=== PATIENT | female | born 1950 | race Caucasian/White ===

== ENCOUNTER 2017-08-14 19:31 | Inpatient (IN) | payer MEDICARE ==
[~2017-08-14] VITALS: Ht 162.6 cm; Wt 68.0 kg
[2017-08-14] MEDS ORDERED: Sodium Chloride 500ML 500 ML IV ONE (19:54)
[2017-08-14] MEDS ORDERED: Isovue-300 100ml vial INJ PRN (20:00)
[2017-08-14] MEDS ORDERED: Morphine Sulfate 4mg/ml Inj IVP ONE ×2 (20:00→22:00)
[2017-08-14 20:04] LABS: APPEARANCE,URINE VERY CLOUDY; BILIRUBIN, URINE NEGATIVE (NEGATIVE); COLOR,URINE PALE YELLOW; GLUCOSE, URINE (UA) NEGATIVE (NEGATIVE); KETONES,URINE NEGATIVE (NEGATIVE); LEUKOCYTE ESTERASE ,URINE 3+ (NEGATIVE); NITRITE,URINE POSITIVE (NEGATIVE); PH,URINE 6 (4.5-8.0); PROTEIN,URINE 3+ (NEGATIVE); UROBILINOGEN,URINE NORMAL MG/DL (0.0-1.0)
[2017-08-14] MEDS ORDERED: cefTRIAXone 1 GM in NS 55 ML IVPB ONE (20:15)
[2017-08-14 20:32] VITALS: BP 101/82
[2017-08-14 20:32] LABS: BASOPHILS % (AUTO) 0.8 % (0.0-2.0); EOSINOPHILS % (AUTO) 0.5 % (0.0-3.0); HEMATOCRIT 41.1 % (37.0-47.0); HEMOGLOBIN 13.7 G/DL (12.0-16.0); LYMPHOCYTES % (AUTO) 32.9 % (20.0-45.0); MEAN CORPUSCULAR VOLUME 86 FL (80-99); MONOCYTES % (AUTO) 5.7 % (1.0-10.0); NEUTROPHILS % (AUTO) 60.1 % (45.0-75.0); PLATELET COUNT 202 K/UL (150-450); RED BLOOD COUNT 4.75 M/UL (4.20-5.40); RED CELL DISTRIBUTION WIDTH 13.7 % (11.6-14.8); WHITE BLOOD COUNT 10.3 K/UL (4.8-10.8)
[2017-08-14 20:43] LABS: ANION GAP 10 mmol/L (5-15); BLOOD UREA NITROGEN 12 mg/dL (7-18); CALCIUM 9.3 MG/DL (8.5-10.1); CARBON DIOXIDE 26 MMOL/L (21-32); CHLORIDE 105 MMOL/L (98-107); CREATININE 1.1 MG/DL (0.55-1.30); POTASSIUM 3.5 MMOL/L (3.5-5.1); SODIUM 141 MMOL/L (136-145)
[2017-08-14 20:47] LABS: ALANINE AMINOTRANSFERASE 28 U/L (12-78); ALBUMIN 3.8 G/DL (3.4-5.0); ALBUMIN/GLOBULIN RATIO 1.1 (1.0-2.7); ALKALINE PHOSPHATASE 88 U/L (46-116); ASPARTATE AMINO TRANSFERASE 18 U/L (15-37); BILIRUBIN,TOTAL 0.5 MG/DL (0.2-1.0)
[2017-08-14 21:30] VITALS: BP 150/97
[2017-08-14] MEDS ORDERED: Ketorolac 30mg Inj IV ONE (22:00)
--- NOTE | 2017-08-14 22:23 | Emergency Room Report ---
History of Present Illness General Chief Complaint: Abdominal Pain Source: Patient Present Illness HPI 67-year-old female presents ED complaining of right flank pain and abdominal pain. Started approximately one hour ago. Pain is sharp, 8 out of 10 radiating to the right lower abdomen. Patient states that she's been recently treated for UTI by her PMD. Has been on multiple antibiotics without resolution. Notes history of kidney stones long time ago. Denies nausea or vomiting. Denies chest pain or shortness of breath. No other aggravating relieving factors. Denies any other associated symptoms Allergies: Coded Allergies: SULFA (SULFONAMIDE ANTIBIOTICS) (Verified Allergy, Unknown, 08/14/17) Patient History Past Medical History: HTN Past Surgical History: none Pertinent Family History: none Social History: Denies: smoking, alcohol use, drug use Last Menstrual Period: n/a Now: No Immunizations: UTD Reviewed Nursing Documentation: PMH: Agreed; PSxH: Agreed Nursing Documentation-PMH Hx Hypertension: Yes Review of Systems All Other Systems: negative except mentioned in HPI Physical Exam Vital Signs Date Time Temp Pulse Resp B/P (MAP) Pulse Ox O2 Delivery O2 Flow Rate FiO2 08/14/17 19:36 98.5 94 16 151/85 95 Room Air 98.4 Sp02 EP Interpretation: reviewed, normal General Appearance: no apparent distress, alert, GCS 15, non-toxic Head: normocephalic, atraumatic Eyes: bilateral eye normal inspection, bilateral eye PERRL ENT: hearing grossly normal, normal pharynx, no angioedema, normal voice Neck: full range of motion, supple/symm/no masses Respiratory: chest non-tender, lungs clear, normal breath sounds, speaking full sentences Cardiovascular #1: regular rate, rhythm, no edema Cardiovascular #2: 2+ carotid (R), 2+ carotid (L), 2+ radial (R), 2+ radial (L) , 2+ dorsalis pedis (R), 2+ dorsalis pedis (L) Gastrointestinal: normal bowel sounds, soft, non-distended, no guarding, no rebound, tenderness - RLQ Rectal: deferred Genitourinary: normal inspection, CVA tenderness (R) Musculoskeletal: back normal, gait/station normal, normal range of motion, non- tender Neurologic: alert, oriented x3, responsive, motor strength/tone normal, sensory intact, speech normal Psychiatric: judgement/insight normal, memory normal, mood/affect normal, no suicidal/homicidal ideation Reflexes: 3+ bicep (R), 3+ bicep (L), 3+ tricep (R), 3+ tricep (L), 3+ knee (R) , 3+ knee (L) Skin: normal color, no rash, warm/dry, well hydrated Lymphatic: no adenopathy Medical Decision Making Diagnostic Impression: Primary Impression: Kidney stone Additional Impression: UTI (urinary tract infection) Qualified Codes: N10 - Acute pyelonephritis ER Course Hospital Course 67-year-old F presents to ED with R flank, RLQ pain Differential diagnosis includes-appendicitis, cholecystitis, kidney stone, pyelonephritis Clinical course Patient placed on stretcher. After initial history and physical I ordered labs , IV fluids, pain medications and CT scan Labs - no leukocytosis, electroytes ok, UA + bacteria + blood CT scan shows 6mm stone at R UPJ Discussed findings with the patient. Given persistent UTI failing outpatient therapy I believe patient should be admitted. Given IV antibiotics here. Given Toradol, additional morphine and Flomax. Dr Mondragon (urology) will see the patient. Dr Medrano will admit the patient I feel this is a highly complex case requiring extensive working including EKG/ Rhythm strip, Xray/CT/US, Blood/urine lab work, repeat exams while in ED, and administration of strong opiates/narcotics for pain control, admission to hospital or close patient follow up. Diagnosis - kidney stone, UTI admitted to floor in serious condition Labs Test 08/14/17 19:45 08/14/17 19:55 Urine Color Pale yellow Urine Appearance Very cloudy Urine pH 6 (4.5-8.0) Urine Specific [place] 1.020 (1.005-1.035) Urine Protein 3+ (NEGATIVE) Urine Glucose (UA) Negative (NEGATIVE) Urine Ketones Negative (NEGATIVE) Urine Occult Blood 5+ (NEGATIVE) Urine Nitrite Positive (NEGATIVE) Urine Bilirubin Negative (NEGATIVE) Urine Urobilinogen Normal MG/DL (0.0-1.0) Urine Leukocyte Esterase 3+ (NEGATIVE) Urine RBC 0-2 /HPF (0 - 2) Urine WBC Tntc /HPF (0 - 2) Urine Squamous Epithelial Cells Few /LPF (NONE/OCC) Urine Bacteria Many /HPF (NONE) White Blood Count 10.3 K/UL (4.8-10.8) Red Blood Count 4.75 M/UL (4.20-5.40) Hemoglobin 13.7 G/DL (12.0-16.0) Hematocrit 41.1 % (37.0-47.0) Mean Corpuscular Volume 86 FL (80-99) Mean Corpuscular Hemoglobin 28.7 PG (27.0-31.0) Mean Corpuscular Hemoglobin Concent 33.3 G/DL (32.0-36.0) Red Cell Distribution Width 13.7 % (11.6-14.8) Platelet Count 202 K/UL (150-450) Mean Platelet Volume 8.4 FL (6.5-10.1) Neutrophils (%) (Auto) 60.1 % (45.0-75.0) Lymphocytes (%) (Auto) 32.9 % (20.0-45.0) Monocytes (%) (Auto) 5.7 % (1.0-10.0) Eosinophils (%) (Auto) 0.5 % (0.0-3.0) Basophils (%) (Auto) 0.8 % (0.0-2.0) Sodium Level 141 MMOL/L (136-145) Potassium Level 3.5 MMOL/L (3.5-5.1) Chloride Level 105 MMOL/L (98-107) Carbon Dioxide Level 26 MMOL/L (21-32) Anion Gap 10 mmol/L (5-15) Blood Urea Nitrogen 12 mg/dL (7-18) Creatinine 1.1 MG/DL (0.55-1.30) Estimat Glomerular Filtration Rate 49.7 mL/min (>60) Glucose Level 111 MG/DL (74-106) Calcium Level 9.3 MG/DL (8.5-10.1) Total Bilirubin 0.5 MG/DL (0.2-1.0) Aspartate Amino Transf (AST/SGOT) 18 U/L (15-37) Alanine Aminotransferase (ALT/SGPT) 28 U/L (12-78) Alkaline Phosphatase 88 U/L (46-116) Total Protein 7.2 G/DL (6.4-8.2) Albumin 3.8 G/DL (3.4-5.0) Globulin 3.4 g/dL Albumin/Globulin Ratio 1.1 (1.0-2.7) Lipase 151 U/L (73-393) CT/MRI/US Diagnostic Results CT/MRI/US Diagnostic Results : Imaging Test Ordered: CT A/P Impression 6 mm stone at the right UPJ. There is dilatation of the renal collecting systems bilaterally, right greater than left. Asymmetric dilatation of the remainder of the right ureter is noted. No distal stones. Last Vital Signs Date Time Temp Pulse Resp B/P (MAP) Pulse Ox O2 Delivery O2 Flow Rate FiO2 08/14/17 21:52 97.7 08/14/17 21:30 86 16 150/97 97 Room Air Status: improved Disposition: ADMITTED INPATIENT Condition: Serious Referrals: NON PHYSICIAN (PCP) Arik Ramos MD Aug 14, 2017 22:23
[2017-08-14] MEDS ORDERED: Tamsulosin 0.4mg cap ORAL ONE (22:45)
[2017-08-14] MEDS ORDERED: METOPROLOL SUCC25 MG ORAL (23:01)
[2017-08-14] MEDS ORDERED: TYLENOL EXTRA500 MG ORAL (23:01)
[2017-08-14] MEDS ORDERED: DICYCLOMINE HCL10 MG PO (23:01)
[2017-08-14] MEDS ORDERED: OMEPRAZOLE40 M1 ORAL (23:01)
[2017-08-14 23:54] VITALS: BP 131/75
[2017-08-15] MEDS ORDERED: Morphine Sulfate 4mg/ml Inj IVP PRN (00:15)
[2017-08-15 00:30] VITALS: BP 116/72
[2017-08-15 04:00] VITALS: BP 116/54
[2017-08-15 06:42] LABS: BASOPHILS % (AUTO) 0.9 % (0.0-2.0); EOSINOPHILS % (AUTO) 0.6 % (0.0-3.0); HEMATOCRIT 34.1 % (37.0-47.0); HEMOGLOBIN 11.1 G/DL (12.0-16.0); LYMPHOCYTES % (AUTO) 35.8 % (20.0-45.0); MEAN CORPUSCULAR VOLUME 87 FL (80-99); MONOCYTES % (AUTO) 7.9 % (1.0-10.0); NEUTROPHILS % (AUTO) 54.8 % (45.0-75.0); PLATELET COUNT 160 K/UL (150-450); RED BLOOD COUNT 3.91 M/UL (4.20-5.40); RED CELL DISTRIBUTION WIDTH 13.6 % (11.6-14.8); WHITE BLOOD COUNT 6.6 K/UL (4.8-10.8)
[2017-08-15 07:05] LABS: ANION GAP 6 mmol/L (5-15); BLOOD UREA NITROGEN 8 mg/dL (7-18); CALCIUM 8.1 MG/DL (8.5-10.1); CARBON DIOXIDE 28 MMOL/L (21-32); CHLORIDE 107 MMOL/L (98-107); POTASSIUM 4.1 MMOL/L (3.5-5.1); SODIUM 141 MMOL/L (136-145)
[2017-08-15 07:43] VITALS: BP 114/60
--- NOTE | 2017-08-15 08:34 | Consultation ---
History of Present Illness General Date patient seen: Aug 15, 2017 Chief Complaint: Abdominal Pain Present Illness Allergies: Coded Allergies: SULFA (SULFONAMIDE ANTIBIOTICS) (Verified Allergy, Unknown, 08/14/17) Medication History Scheduled Metoprolol Succinate* (Metoprolol Succinate*), 25 MG ORAL DAILY, (Reported) Omeprazole (Omeprazole), 40 MG ORAL DAILY, (Reported) Scheduled PRN Acetaminophen* (Tylenol Extra Strength*), 500 MG ORAL Q6H PRN for Mild Pain/ Temp > 100.5, (Reported) Discontinued Medications Dicyclomine Hcl* (Dicyclomine Hcl*), 10 MG PO QID, (Reported) Discontinued Reason: MD discontinued med Patient History Healthcare decision maker Resuscitation status Full Code Advanced Directive on File Physical Exam Last 24 Hour Vital Signs Date Time Temp Pulse Resp B/P (MAP) Pulse Ox O2 Delivery O2 Flow Rate FiO2 08/15/17 08:17 80 114/60 08/15/17 07:52 97.9 08/15/17 07:43 97.9 80 18 114/60 96 Room Air 97.9 08/15/17 04:00 98.4 78 18 116/54 96 Room Air 98.4 08/15/17 00:30 97.0 77 18 116/72 100 Room Air 97.0 08/15/17 00:10 97.7 78 12 131/75 98 Room Air 97.7 08/14/17 23:54 78 12 131/75 98 Room Air 08/14/17 22:21 97.7 08/14/17 22:21 97.7 08/14/17 21:52 97.7 08/14/17 21:52 97.7 08/14/17 21:30 97.7 86 16 150/97 97 Room Air 97.7 08/14/17 20:36 98.5 08/14/17 20:06 98.5 08/14/17 19:36 98.5 94 16 151/85 95 Room Air 98.4 Intake and Output 08/14/17 08/15/17 19:00 07:00 Intake Total 1555 ml Balance 1555 ml Intake Oral 600 ml IV Total 955 ml # Voids 4 Laboratory Tests Test 08/14/17 19:45 08/14/17 19:55 08/15/17 05:10 Urine Color Pale yellow Urine Appearance Very cloudy Urine pH 6 (4.5-8.0) Urine Specific [place] 1.020 (1.005-1.035) Urine Protein 3+ (NEGATIVE) H Urine Glucose (UA) Negative (NEGATIVE) Urine Ketones Negative (NEGATIVE) Urine Occult Blood 5+ (NEGATIVE) H Urine Nitrite Positive (NEGATIVE) H Urine Bilirubin Negative (NEGATIVE) Urine Urobilinogen Normal MG/DL (0.0-1.0) Urine Leukocyte Esterase 3+ (NEGATIVE) H Urine RBC 0-2 /HPF (0 - 2) Urine WBC Tntc /HPF (0 - 2) H Urine Squamous Epithelial Cells Few /LPF (NONE/OCC) Urine Bacteria Many /HPF (NONE) H White Blood Count 10.3 K/UL (4.8-10.8) 6.6 K/UL (4.8-10.8) Red Blood Count 4.75 M/UL (4.20-5.40) 3.91 M/UL (4.20-5.40) L Hemoglobin 13.7 G/DL (12.0-16.0) 11.1 G/DL (12.0-16.0) L Hematocrit 41.1 % (37.0-47.0) 34.1 % (37.0-47.0) L Mean Corpuscular Volume 86 FL (80-99) 87 FL (80-99) Mean Corpuscular Hemoglobin 28.7 PG (27.0-31.0) 28.5 PG (27.0-31.0) Mean Corpuscular Hemoglobin Concent 33.3 G/DL (32.0-36.0) 32.6 G/DL (32.0-36.0) Red Cell Distribution Width 13.7 % (11.6-14.8) 13.6 % (11.6-14.8) Platelet Count 202 K/UL (150-450) 160 K/UL (150-450) Mean Platelet Volume 8.4 FL (6.5-10.1) 8.4 FL (6.5-10.1) Neutrophils (%) (Auto) 60.1 % (45.0-75.0) 54.8 % (45.0-75.0) Lymphocytes (%) (Auto) 32.9 % (20.0-45.0) 35.8 % (20.0-45.0) Monocytes (%) (Auto) 5.7 % (1.0-10.0) 7.9 % (1.0-10.0) Eosinophils (%) (Auto) 0.5 % (0.0-3.0) 0.6 % (0.0-3.0) Basophils (%) (Auto) 0.8 % (0.0-2.0) 0.9 % (0.0-2.0) Sodium Level 141 MMOL/L (136-145) 141 MMOL/L (136-145) Potassium Level 3.5 MMOL/L (3.5-5.1) 4.1 MMOL/L (3.5-5.1) Chloride Level 105 MMOL/L (98-107) 107 MMOL/L (98-107) Carbon Dioxide Level 26 MMOL/L (21-32) 28 MMOL/L (21-32) Anion Gap 10 mmol/L (5-15) 6 mmol/L (5-15) Blood Urea Nitrogen 12 mg/dL (7-18) 8 mg/dL (7-18) Creatinine 1.1 MG/DL (0.55-1.30) 1.0 MG/DL (0.55-1.30) Estimat Glomerular Filtration Rate 49.7 mL/min (>60) 55.5 mL/min (>60) Glucose Level 111 MG/DL (74-106) H 94 MG/DL (74-106) Calcium Level 9.3 MG/DL (8.5-10.1) 8.1 MG/DL (8.5-10.1) L Total Bilirubin 0.5 MG/DL (0.2-1.0) Aspartate Amino Transf (AST/SGOT) 18 U/L (15-37) Alanine Aminotransferase (ALT/SGPT) 28 U/L (12-78) Alkaline Phosphatase 88 U/L (46-116) Total Protein 7.2 G/DL (6.4-8.2) Albumin 3.8 G/DL (3.4-5.0) Globulin 3.4 g/dL Albumin/Globulin Ratio 1.1 (1.0-2.7) Lipase 151 U/L (73-393) Height (Feet): 5 Height (Inches): 4.00 Weight (Pounds): 150 Medications Current Medications Medications (Trade) Dose Ordered Sig/David Route PRN Reason Start Time Stop Time Status Last Admin Dose Admin Acetaminophen (Tylenol) 650 mg Q6H PRN ORAL Mild Pain/Temp > 100.5 08/15/17 00:15 09/14/17 00:14 08/15/17 07:52 Ibuprofen (Motrin) 600 mg Q6H PRN ORAL Mild Pain/Temp > 100.5 08/15/17 00:15 09/14/17 00:14 Iopamidol (Isovue-300 100ml) 100 ml NOW PRN INJ Radiology Procedure 08/14/17 20:00 Metoprolol Succinate (Toprol XL) 25 mg DAILY ORAL 08/15/17 09:00 09/14/17 08:59 08/15/17 08:17 Morphine Sulfate (Morphine Sulfate) 4 mg Q4H PRN IVP For Pain 08/15/17 00:15 08/22/17 00:14 Ondansetron HCl (Zofran) 4 mg Q4H PRN IVP Nausea & Vomiting 08/15/17 08:30 09/14/17 08:29 Pantoprazole (Protonix) 40 mg ACBREAKFAST ORAL 08/15/17 06:30 09/14/17 06:29 08/15/17 06:19 Sodium Chloride 1,000 ml @ 75 mls/hr [id number] IV 08/15/17 00:15 09/14/17 00:14 08/15/17 01:24 Assessment/Plan Assessment/Plan (1) Kidney stone (2) Flank pain (3) Abdominal pain (4) Acute pyelonephritis seen dictated Johnathan Epps Aug 15, 2017 08:34
[2017-08-15] MEDS ORDERED: Metoprolol Succinate XL 25mg tab ORAL SCH (09:00)
--- NOTE | 2017-08-15 09:00 | Diagnostic Imaging Report ---
Clinical Indication: Bilateral quadrant pain and nausea Technique: No oral contrast utilized, per emergency room physician request IV administration nonionic contrast. Venous phase spiral acquisition obtained through the abdomen and pelvis. Multiplanar reconstructions were generated. Total dose length product 747.92 mGycm. CTDIvol(s) 14.79 mGy. Dose reduction achieved using automated exposure control Comparison: none Findings: There is a 4 x 3 mm calculus at the right ureteropelvic junction. There is resultant moderate right hydronephrosis. No intrarenal calculi are demonstrated. There is also mild right hydroureter distal to the calculus despite no evidence of calculus or other obstructive pathology more distally. There is evidence of prior renal surgery, likely with resection of the upper pole of the right kidney. Surgical clips are seen adjacent to the upper pole, in the region of the renal hilum, and adjacent to the proximal right ureter. There is some periureteral fat stranding. No left renal or ureteral calculi demonstrated. There is some fullness to the left renal pelvis. There are also left renal parapelvic cysts. There are also some left renal cortical cysts and subcentimeter bilateral renal lesions which are too small to characterize. The appendix is definitely identified, but no findings to suggest acute appendicitis are evident. There is colonic diverticulosis, without evidence of diverticulitis. No small bowel distention. No free or loculated intraperitoneal air or fluid is evident. The distal esophagus, stomach, duodenum are unremarkable. The liver, gallbladder, bile ducts, pancreas, spleen, adrenals are unremarkable. There is a small splenic hilar accessory splenule. No retroperitoneal or mesenteric mass or adenopathy. The uterus is not visualized, presumed surgically absent. No pelvic mass or adenopathy. There is some posterior dependent atelectasis at both lung bases, and some scarring in the inferior lingula. The bones are unremarkable. Impression: Positive for 4 x 3 mm calculus at the right ureteropelvic junction. Resultant moderate right hydronephrosis, and minimal peripelvic fat stranding. Mild distal right hydroureter, etiology uncertain as no obstructive lesion is demonstrated. May indicate prior stone passage Evidence of prior right renal surgery, with probable resection of the right upper pole Left renal pelvic fullness without tha hydronephrosis, may reflect mild ureteropelvic junction obstruction. There are also left renal parapelvic and cortical cysts present. Subcentimeter bilateral renal lesions which are too small to characterize, most likely benign simple cysts Colonic diverticulosis. No evidence of diverticulitis Other findings as noted, including dependent posterior pulmonary atelectasis, inferior lingular scarring, small accessory splenule, evidence of prior hysterectomy This agrees with the preliminary interpretation provided overnight by [facility] teleradiology service. The CT scanner at [facility] is accredited by the [employer] and the scans are performed using protocols designed to limit radiation exposure to as low as reasonably achievable to attain images of sufficient resolution adequate for diagnostic evaluation.
[2017-08-15 12:00] VITALS: BP 120/70
[2017-08-15 16:00] VITALS: BP 120/69
--- NOTE | 2017-08-15 18:05 | Consultation ---
History of Present Illness General Date patient seen: Aug 15, 2017 Chief Complaint: Abdominal Pain Referring physician: unique Reason for Consultation: left flank pain Present Illness HPI 67 yo female with acute left flank pain. Dx with small renal stone and hydronephrosis. Patient feels better with pain medication. Wants to head back home to [place], [place]. Already missed flight. 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 Allergies: Coded Allergies: SULFA (SULFONAMIDE ANTIBIOTICS) (Verified Allergy, Unknown, 08/14/17) Medication History Scheduled Metoprolol Succinate* (Metoprolol Succinate*), 25 MG ORAL DAILY, (Reported) Omeprazole (Omeprazole), 40 MG ORAL DAILY, (Reported) Scheduled PRN Acetaminophen* (Tylenol Extra Strength*), 500 MG ORAL Q6H PRN for Mild Pain/ Temp > 100.5, (Reported) Discontinued Medications Dicyclomine Hcl* (Dicyclomine Hcl*), 10 MG PO QID, (Reported) Discontinued Reason: MD discontinued med Patient History History Provided By: Patient Healthcare decision maker Resuscitation status Full Code Advanced Directive on File Past Medical/Surgical History Past Medical/Surgical History: (1) Kidney stone (2) UTI (urinary tract infection) Review of Systems Constitutional: Denies: no symptoms, see HPI, chills, sweats, fever, malaise, weakness, other Eye: Denies: no symptoms, see HPI, eye pain, blurred vision, tearing, double vision, nose pain, nose congestion, acuity changes, discharge, other ENT: Denies: no symptoms, see HPI, ear pain, ear discharge, nose pain, nose congestion, throat pain, throat swelling, mouth pain, hearing loss, nasal discharge, other Respiratory: Denies: no symptoms, see HPI, cough, orthopnea, shortness of breath, stridor, wheezing, ALMEIDA, sputum, other Cardiovascular: Denies: no symptoms, see HPI, chest pain, edema, palpitations, syncope, PND, other Gastrointestinal: Denies: no symptoms, see HPI, abdominal pain, constipation, diarrhea, nausea, vomiting, melena, hematemesis, other Genitourinary: Denies: no symptoms, see HPI, discharge, dysuria, frequency, hematuria, pain, retention, incontinence, urgency, vag bleed/dc, other Musculoskeletal: Denies: no symptoms, see HPI, back pain, gout, joint pain, joint swelling, muscle pain, muscle stiffness, other Skin: Denies: no symptoms, see HPI, rash, change in color, change in hair/nails , dryness, lesions, other Psychiatric: Denies: no symptoms, see HPI, prior hx, anxiety, depressed feelings, emotional problems, SI, HI, hallucinations, other Neurological: Denies: no symptoms, see HPI, headache, numbness, paresthesia, seizure, tingling, tremors, focal weakness, syncope, dizziness, other Endocrine: Denies: no symptoms, see HPI, excessive sweating, flushing, intolerance to temperature, increased thirst, increased urine, unexplained weight loss, other Hematologic/Lymphatic: Denies: no symptoms, see HPI, anemia, blood clots, easy bleeding, easy bruising, swollen glands, diathesis, other All Other Systems: negative except mentioned in HPI Physical Exam General Appearance: no apparent distress HEENT: atraumatic Neck: non-tender, supple Cardiovascular/Chest: normal rate Abdomen: non tender, soft Extremities: non-tender Neurologic: alert, oriented x 3 Last 24 Hour Vital Signs Date Time Temp Pulse Resp B/P (MAP) Pulse Ox O2 Delivery O2 Flow Rate FiO2 08/15/17 16:00 98.0 74 20 120/69 98 98.0 08/15/17 12:00 97.7 78 20 120/70 98 97.7 08/15/17 09:08 97.9 08/15/17 08:51 97.9 08/15/17 08:38 97.9 08/15/17 08:17 80 114/60 08/15/17 07:52 97.9 08/15/17 07:43 97.9 80 18 114/60 96 Room Air 97.9 08/15/17 04:00 98.4 78 18 116/54 96 Room Air 98.4 08/15/17 00:30 97.0 77 18 116/72 100 Room Air 97.0 08/15/17 00:10 97.7 78 12 131/75 98 Room Air 97.7 08/14/17 23:54 78 12 131/75 98 Room Air 08/14/17 22:21 97.7 08/14/17 22:21 97.7 08/14/17 21:52 97.7 08/14/17 21:52 97.7 08/14/17 21:30 97.7 86 16 150/97 97 Room Air 97.7 08/14/17 20:36 98.5 08/14/17 20:06 98.5 08/14/17 19:36 98.5 94 16 151/85 95 Room Air 98.4 Intake and Output 08/14/17 08/15/17 19:00 07:00 Intake Total 1555 ml Balance 1555 ml Intake Oral 600 ml IV Total 955 ml # Voids 4 Laboratory Tests Test 08/14/17 19:45 08/14/17 19:55 08/15/17 05:10 Urine Color Pale yellow Urine Appearance Very cloudy Urine pH 6 (4.5-8.0) Urine Specific [place] 1.020 (1.005-1.035) Urine Protein 3+ (NEGATIVE) H Urine Glucose (UA) Negative (NEGATIVE) Urine Ketones Negative (NEGATIVE) Urine Occult Blood 5+ (NEGATIVE) H Urine Nitrite Positive (NEGATIVE) H Urine Bilirubin Negative (NEGATIVE) Urine Urobilinogen Normal MG/DL (0.0-1.0) Urine Leukocyte Esterase 3+ (NEGATIVE) H Urine RBC 0-2 /HPF (0 - 2) Urine WBC Tntc /HPF (0 - 2) H Urine Squamous Epithelial Cells Few /LPF (NONE/OCC) Urine Bacteria Many /HPF (NONE) H White Blood Count 10.3 K/UL (4.8-10.8) 6.6 K/UL (4.8-10.8) Red Blood Count 4.75 M/UL (4.20-5.40) 3.91 M/UL (4.20-5.40) L Hemoglobin 13.7 G/DL (12.0-16.0) 11.1 G/DL (12.0-16.0) L Hematocrit 41.1 % (37.0-47.0) 34.1 % (37.0-47.0) L Mean Corpuscular Volume 86 FL (80-99) 87 FL (80-99) Mean Corpuscular Hemoglobin 28.7 PG (27.0-31.0) 28.5 PG (27.0-31.0) Mean Corpuscular Hemoglobin Concent 33.3 G/DL (32.0-36.0) 32.6 G/DL (32.0-36.0) Red Cell Distribution Width 13.7 % (11.6-14.8) 13.6 % (11.6-14.8) Platelet Count 202 K/UL (150-450) 160 K/UL (150-450) Mean Platelet Volume 8.4 FL (6.5-10.1) 8.4 FL (6.5-10.1) Neutrophils (%) (Auto) 60.1 % (45.0-75.0) 54.8 % (45.0-75.0) Lymphocytes (%) (Auto) 32.9 % (20.0-45.0) 35.8 % (20.0-45.0) Monocytes (%) (Auto) 5.7 % (1.0-10.0) 7.9 % (1.0-10.0) Eosinophils (%) (Auto) 0.5 % (0.0-3.0) 0.6 % (0.0-3.0) Basophils (%) (Auto) 0.8 % (0.0-2.0) 0.9 % (0.0-2.0) Sodium Level 141 MMOL/L (136-145) 141 MMOL/L (136-145) Potassium Level 3.5 MMOL/L (3.5-5.1) 4.1 MMOL/L (3.5-5.1) Chloride Level 105 MMOL/L (98-107) 107 MMOL/L (98-107) Carbon Dioxide Level 26 MMOL/L (21-32) 28 MMOL/L (21-32) Anion Gap 10 mmol/L (5-15) 6 mmol/L (5-15) Blood Urea Nitrogen 12 mg/dL (7-18) 8 mg/dL (7-18) Creatinine 1.1 MG/DL (0.55-1.30) 1.0 MG/DL (0.55-1.30) Estimat Glomerular Filtration Rate 49.7 mL/min (>60) 55.5 mL/min (>60) Glucose Level 111 MG/DL (74-106) H 94 MG/DL (74-106) Calcium Level 9.3 MG/DL (8.5-10.1) 8.1 MG/DL (8.5-10.1) L Total Bilirubin 0.5 MG/DL (0.2-1.0) Aspartate Amino Transf (AST/SGOT) 18 U/L (15-37) Alanine Aminotransferase (ALT/SGPT) 28 U/L (12-78) Alkaline Phosphatase 88 U/L (46-116) Total Protein 7.2 G/DL (6.4-8.2) Albumin 3.8 G/DL (3.4-5.0) Globulin 3.4 g/dL Albumin/Globulin Ratio 1.1 (1.0-2.7) Lipase 151 U/L (73-393) Microbiology Date/Time Source Procedure Growth Status 08/14/17 19:45 Urine,Clean Catch Urine Culture - Preliminary Gram Negative Bacillus 1 Resulted Height (Feet): 5 Height (Inches): 4.00 Weight (Pounds): 150 Medications Current Medications Medications (Trade) Dose Ordered Sig/David Route PRN Reason Start Time Stop Time Status Last Admin Dose Admin Acetaminophen (Tylenol) 650 mg Q6H PRN ORAL Mild Pain/Temp > 100.5 08/15/17 00:15 09/14/17 00:14 08/15/17 07:52 Ceftriaxone Sodium 1 gm/ Dextrose 110 ml @ 220 mls/hr Q24H IVPB 08/15/17 21:00 08/22/17 20:59 Ibuprofen (Motrin) 600 mg Q6H PRN ORAL Mild Pain/Temp > 100.5 08/15/17 00:15 09/14/17 00:14 Iopamidol (Isovue-300 100ml) 100 ml NOW PRN INJ Radiology Procedure 08/14/17 20:00 Metoprolol Succinate (Toprol XL) 25 mg DAILY ORAL 08/15/17 09:00 09/14/17 08:59 08/15/17 08:17 Morphine Sulfate (Morphine Sulfate) 4 mg Q4H PRN IVP For Pain 08/15/17 00:15 08/22/17 00:14 08/15/17 08:38 Ondansetron HCl (Zofran) 4 mg Q4H PRN IVP Nausea & Vomiting 08/15/17 08:30 09/14/17 08:29 08/15/17 08:38 Pantoprazole (Protonix) 40 mg ACBREAKFAST ORAL 08/15/17 06:30 09/14/17 06:29 08/15/17 06:19 Sodium Chloride 1,000 ml @ 75 mls/hr [id number] IV 08/15/17 00:15 09/14/17 00:14 08/15/17 13:42 Assessment/Plan Status: stable Assessment/Plan 67 yo female with left flank pain. Likely from small renal stone with hydronephrosis. Patient likely had obstructed upper pole moeity that was removed. Lower pole remnant likely has chronic hydronephrosis. Stone is very passable and patient is comfortable. Recommend 2 weeks of abx. Offered ureteral stent but [facility] 1. 2 weeks abx 2. pain meds 3. hydration 4. f/u urologist in [place]. Giles Mondragon M.D. Aug 15, 2017 18:05
[2017-08-15] MEDS ORDERED: CEFDINIR300 MG PO (18:09)
--- NOTE | 2017-08-15 18:15 | Consultation ---
DATE OF CONSULTATION: 08/15/2017 INFECTIOUS DISEASE CONSULTATION CONSULTING PHYSICIAN: Herber Busby M.D. PRIMARY ATTENDING PHYSICIAN: Rolanda Medrano M.D. REASON FOR CONSULT: Urinary tract infection and pyelonephritis. HISTORY OF PRESENT ILLNESS: This is a 67-year-old white female admitted last night complaining of right flank pain. It was 8/10. The patient noticed recently that the she has frequent urinary tract infection and has pain on and off, but pain increased last night. She tried three different antibiotics as an outpatient recently. PAST MEDICAL HISTORY: Significant for hypertension. The patient had left knee replacement. She has history of right shoulder surgery, has history of cataract surgery, and hysterectomy. MEDICATIONS: Metoprolol, Zofran, Protonix, ibuprofen, Tylenol, and morphine. She had the dose of ceftriaxone in the ER. ALLERGIES: Allergic to sulfa drugs. SOCIAL HISTORY: . Three children. No history of alcohol, drug abuse, or smoking. She is from [place] and is in [place] for visit. REVIEW OF SYSTEMS: Currently, the pain is controlled and the patient does not have any other symptoms. PHYSICAL EXAMINATION: VITAL SIGNS: Temperature 97.7, pulse 78, and blood pressure 120/70. GENERAL APPEARANCE: She is in no acute distress. Well developed. Awake, alert, and oriented x3. HEAD AND NECK: [place] conjunctivae. No oral lesions. HEART: S1 and S2 regular. LUNGS: Clear. ABDOMEN: Soft. There is no CVA tenderness. EXTREMITIES: She has no edema. LABORATORY DATA: WBC 6.6, hemoglobin 11.1, hematocrit 34.1, and platelet 160,000. Sodium 141, potassium 4.1, chloride 107, bicarb 28, BUN 8, creatinine 1, and glucose 94. UA showed wbc too numerous to count and nitrite positive. Urine culture is growing gram-negative bacillus. CT scan of the abdomen and pelvis showed a 3 x 4 mm calculus at right ureteropelvic junction with moderate right hydronephrosis with a minimal pre-pelvic fat stranding, has diverticulosis without diverticulitis, and has evidence of previous right renal surgery with resection of right upper pole. IMPRESSION: Complicated urinary tract infection, likely pyelonephritis. The patient has nephrolithiasis, right hydronephrosis, and anemia. RECOMMENDATION: We will continue with ceftriaxone. We will follow up with urine culture. The patient needs urologic evaluation. At the end of my exam, I thank Dr. Medrano for involving me in the care of this patient. Herber Busby M.D. DR: HELLEN JOB#: [id number] CC: LOLI
[2017-08-15] MEDS ORDERED: 1/2 NS 1000ml IV ONE (18:36)
[2017-08-15] MEDS ORDERED: cefTRIAXone 1 GM in D5W 110 ML IVPB SCH (21:00)
--- NOTE | 2017-08-15 23:14 | Consultation ---
DATE OF CONSULTATION: 08/15/2017 NOTE: POOR AUDIO PAIN MANAGEMENT CONSULTATION CONSULTING PHYSICIAN: Luis Arredondo M.D. REFERRING PHYSICIAN: Rolanda Medrano M.D. PHYSICIAN LEGAL PROJECT MANAGER: Horacio Munroe CHIEF COMPLAINT: Right flank pain with abdominal pain. HISTORY OF PRESENT ILLNESS: The patient is a 67-year-old female who is being seen on the Medical/Surgical floor of [facility] for initial pain management consultation. The patient is in bed with at bedside. At this time, the patient is complaining that she has been having flank pain, abdominal pain, and was admitted under the care of Dr. Medrano, found to have kidney stone being [address] scan, possible pyelonephritis, awaiting to be seen by urologist, Dr. Mondragon, started on morphine 4 mg IV every 4 hours as needed for pain, which reduced her pain from a 7/10 to 3/10. The patient states she is comfortable in the bed. No signs of pain. No distress. We were consulted to help the patient to have adequate pain control while here in the hospital. PAST MEDICAL HISTORY: Hypertension and GERD. PAST SURGICAL HISTORY: Left knee replacement, humeral fracture , cervical surgery, hysterectomy, foot surgery, and right kidney surgery. MEDICATIONS: Metoprolol, omeprazole, Tylenol, and . ALLERGIES: Sulfa. SOCIAL HISTORY: Denies smoking, drinking alcohol, or IV drug abuse. REVIEW OF SYSTEMS: Denies rash, fever, chills, sweating, dizziness, drowsiness, or change in her weight. No shortness of breath or chest pain. No nausea, vomiting, diarrhea, or blood in the stool or urine. No bowel or bladder incontinence. No dysuria. She is complaining of flank pain and abdominal pain. PHYSICAL EXAMINATION: GENERAL: Alert, awake, and oriented. VITAL SIGNS: Blood pressure 114/60, heart rate is 80, oxygen saturation is 96%, respiratory rate 18, and temperature 97.9 degrees Fahrenheit. HEENT: PERRLA. NECK: Range of motion is decreased due to the patient's condition with posterior cervical surgery noted. LUNGS: Clear. HEART: Regular. ABDOMEN: Tenderness to palpation. BACK: Range of motion is decreased in flexion and extension with CVA tenderness noted. EXTREMITIES: Upper and lower extremity range of motion is decreased due to the patient's current condition. No cyanosis. No clubbing. No edema. Sensory is intact. Reflexes are not obtainable. No adenopathy. ASSESSMENT AND PLAN: This is a 67-year-old female with kidney stone abdominal pain and flank pain. The patient will be continued on morphine 4 mg IV every 4 hours needed for severe pain. She will be seen by the urologist. The patient was discussed with Dr. Arredondo and Dr. Arredondo concurred. We will follow the patient. Thank you very much for the courtesy of this consultation. Luis Arredondo M.D. SHANELL Munroe DR: MARY JOB#: [id number] CC:
--- NOTE | 2017-08-16 03:45 | History and Physical Report ---
DATE OF ADMISSION: 08/14/2017 REASON FOR ADMISSION: The patient is admitted for kidney stones and urinary tract infection. HISTORY OF PRESENT ILLNESS: The patient is complaining of having recurrent UTIs. The patient is complaining of right flank pain radiating to the back that is constant for the past day associated with nausea. The patient also has heartburn and came here and was admitted for UTI and kidney stones. The patient has some dysuria as well. PAST MEDICAL HISTORY: Recurrent UTI, hypertension, GERD, cataracts, and degenerative joint disease. PAST SURGICAL HISTORY: Foot surgeries, total knee replacement of the left knee, history of right shoulder surgery, cataract surgery, partial right kidney removal, carpal tunnel surgery, and cervical laminectomy. MEDICATIONS: For high blood pressure and heart medication. ALLERGIES: Sulfa. FAMILY HISTORY: Noncontributory. SOCIAL HISTORY: Denies smoking, alcohol, or illicit drugs. REVIEW OF SYSTEMS: HEENT: Denies headaches. RESPIRATORY: Denies shortness of breath. Denies cough. CARDIOVASCULAR: Denies chest pain. No orthopnea. GASTROINTESTINAL: Reported abdominal right flank pain, radiating to the back for one day. Denies constipation. Denies nausea, vomiting, or diarrhea. EXTREMITIES: Denies any pain. CENTRAL NERVOUS SYSTEM: Denies change in vision or speech pattern. PHYSICAL EXAMINATION: VITAL SIGNS: Temperature 97.2, pulse 70, and blood pressure 132/70. HEENT: PERRLA. NECK: Supple. No lymphadenopathy. CHEST: Clear to auscultation. ABDOMEN: Soft and nondistended. EXTREMITIES: No edema. Reflexes are equal on both lower extremities. LABORATORY DATA: Essentially normal. Kidneys showed right kidney stone in the ureteropelvic junction and moderate right hydronephrosis. ASSESSMENT: 1. Urinary tract infection. 2. Kidney stones. 3. Hydronephrosis. PLAN: I have consulted Dr. Mondragon for pain control and Dr. Mondragon has been consulted for the kidney stones and Dr. Aragon for the dehydration. Rolanda Medrano M.D. DR: KEELEY JOB#: [id number] CC:
--- NOTE | 2017-08-16 06:42 | Discharge Summary ---
Discharge Summary Discharge Summary _ DATE OF ADMISSION: 08/14/2017 DATE OF DISCHARGE: 08/15/2017 CONSULTANTS: Dr. Herber Arredondo BRIEF HOSPITAL COURSE: Patient is a 67-year-old female, who is originally from [place], [place]. She presented to ED complaining of right flank pain radiating to the back that has been constant for the past day, associated with nausea. Pain was described to be sharp, 8 out of 10 in intensity, radiating to the right lower abdomen. She stated she recently was treated for urinary tract infection and had been on multiple antibiotics without resolution. She denied chest pain, denied shortness of breath, denied aggravating or relieving factors. She has medical history significant for hypertension, GERD, cataracts, degenerative joint disease and recurrent UTI. On evaluation at ED, blood work was normal, lipase was normal, however a urinalysis showed pH of 6, 3+ protein, 5+ occult blood, positive nitrite, urine WBC too many to count, urine RBC 0-2, leukocyte esterase 3+. She had a CT scan of the abdomen and pelvis that showed 4 x 3 mm calculus at the right ureteropelvic junction, with resultant moderate right hydronephrosis and minimal peripelvic fat stranding. There was mild right distal hydroureter, etiology uncertain as there was no obstructive lesion demonstrated. May indicate prior stone passage. There was evidence of prior right renal surgery, with probable resection of the right upper pole. There was left renal pelvic fullness without tha hydronephrosis, mild ureteropelvic junction obstruction. Due to UTI with failed outpatient therapy, patient was admitted for further management. She was seen by urologist. 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 CT imaging was reviewed. Patient likely had obstructed upper pole moeity that was removed. Lower pole remnant likely has chronic hydronephrosis. Stone is very passable and patient feels comfortable. She was recommended need to continue 2 weeks of IV antibiotics. She was offered ureteral stent but preferred to get it done back home. She was continued on IV hydration and was given pain management. He was seen by pain specialist and was given morphine 4 mg IV when necessary. She was seen by infectious disease specialist and was placed on ceftriaxone. Preliminary urine culture was growing gram-negative rods. Due to rapid unexpected resolution of patients' symptoms, she was cleared for discharge home on po antibiotics and to follow-up with urologist upon return back to [place]. FINAL DIAGNOSES: Complicated urinary tract infection, likely pyelonephritis Nephrolithiasis Right Hydronephrosis Anemia DISPOSITION: Patient was discharged home. DISCHARGE MEDICATIONS: Refer to Discharge Medication List. Continue with cefdinir 300 mg by mouth twice a day 14 days. DISCHARGE INSTRUCTIONS: Follow up with PCP within a week. I have been assigned to dictate discharge summary on this account, and I was not involved in the patient's management. Norah Burgess NP Aug 16, 2017 06:42
== END 2017-08-15 18:37 | disposition home or self-care (01) | DRG 690 ==
LOC: EMR 20:37 → 4W 22:23 → EDBEDREQ 22:57
DX: N10 Acute pyelonephritis (principal); N13.6 Pyonephrosis; Z96.652 Presence of left artificial knee joint; D64.9 Anemia, unspecified; Z90.710 Acquired absence of both cervix and uterus; K21.9 Gastro-esophageal reflux disease without esophagitis; I10 Essential (primary) hypertension
CPT/HCPCS: 36415; 74177; 80048; 80053; 81003; 83690; 85025; 87086; 87181; 99285; J2405